=== PATIENT | male | born 1965 | race Caucasian/White ===

== ENCOUNTER 2022-06-23 13:15 | Outpatient (RCR) | payer BC, SELFPAY ==
[2022-06-23 13:12] VITALS: BMI 31.3
[2022-06-23 15:14] VITALS: BMI 31.3
== END 2022-09-06 08:55 | disposition home or self-care (01) ==
LOC: ANHDMC 13:15
PROVIDERS: PCP Family Medicine; Visit Provider Physician Assistant
DX: E11.9 Type 2 diabetes mellitus without complications (principal); Z71.89 Other specified counseling; Z71.3 Dietary counseling and surveillance
CPT/HCPCS: 97802; G0108

== ENCOUNTER 2023-11-07 13:04 | Outpatient (CLI) | payer BC, SELFPAY ==
[2023-11-07 14:07] LABS: Influenza A QL RT-PCR Negative (Negative); Influenza B QL RT-PCR Negative (Negative); RSV RNA, RT-PCR Negative (Negative); SARS-CoV-2 RNA PCR Negative (Negative)
== END 2023-11-07 13:05 | disposition home or self-care (01) ==
LOC: ANHLAB 13:05
PROVIDERS: PCP Family Medicine; Visit Provider Family Medicine
DX: J98.9 Respiratory disorder, unspecified (principal); Z20.822 Contact with and (suspected) exposure to COVID-19
CPT/HCPCS: 87637

== ENCOUNTER 2023-11-14 09:27 | Emergency (ER) | payer BC, SELFPAY ==
--- NOTE | ~2023-11-14 | XR_ITS ---
XR chest 1V portable Ordering provider: Guy Hawkins MD History: 58 years Male with . cough, URI, weakness . Comparison: None. FINDINGS: MEDIASTINUM: The cardiac silhouette is not enlarged. LUNGS: No effusions or pneumothorax. Opacification the lung bases more on the left side suggestive of pneumonia. OTHER: No free air under the diaphragm. Degenerative the spine. IMPRESSION: Bibasilar pneumonia. Reviewed, dictated and finalized at location A. IMPRESSION: Bibasilar pneumonia.
[2023-11-14 10:01] VITALS: BP 166/103; PULSE 94; RESP 16; TEMP 36.6; O2SAT 100
[2023-11-14 11:55] VITALS: O2SAT 100
[2023-11-14 12:15] LABS: Influenza A QL RT-PCR Negative (Negative); Influenza B QL RT-PCR Negative (Negative); RSV RNA, RT-PCR Negative (Negative); SARS-CoV-2 RNA PCR Negative (Negative)
[2023-11-14] MEDS: AZITHROMYCIN 250 MG TABLET 500 MG PO (13:10)
[2023-11-14] MEDS: AMOXICILLIN/CLAVULANATE K 875-125 MG TAB 1 TABLET PO (13:10)
--- NOTE | 2023-11-14 13:28 | ED.GENADULT ---
HPI - General Adult General Chief complaint: Upper Respiratory Infection Stated complaint: been laid up for 3 weeks Time Seen by Provider: 11/14/23 11:38 History of Present Illness HPI narrative: 58-year-old male presents emergency department for evaluation for 3 weeks of cough. Patient was evaluated by his primary care physician and was started on prednisone, patient has not been on any antibiotics. Patient presented the ED for complaint of worsening cough and fatigue. Related Data Allergies Allergy/AdvReac Type Severity Reaction Status Date / Time No Known Allergies Allergy Verified 11/14/23 10:04 Review of Systems Review of Systems: All systems reviewed & are unremarkable except as noted in HPI and below PMFSH Past Medical History Medical History Alcohol use disorder Diabetes Essential hypertension Other hyperlipidemia Prediabetes Screening for malignant neoplasm of prostate Family History Family History Mother Hypertension Other Diabetes mellitus Social History Social History Smoking status: Never smoker Second hand tobacco smoke exposure: No Alcohol intake: current Alcohol use details: drinks 6-12 beers nightly; total of 42-84 weekly Substance use: current Substance use type: does not use and marijuana Other substance usage details: edibles, very infrequently Spiritual care concerns: No Exam Narrative: APPEARANCE: Well appearing, no pain, no distress, well-nourished. HEAD: normocephalic, atraumatic. EYES: PERRLA/EOMI, conjunctivae clear. NOSE: Normal no drainage EARS:TMS clear with good light reflex. THROAT: Pharynx clear, no exudate. NECK: Supple. No adenopathy, no masses. RESPIRATORY: Airway patent, respirations nonlabored. Clear to auscultation bilaterally, no rales, rhonchi, wheezing. CARDIOVASCULAR: Regular rate and rhythm without murmurs rubs or gallops. ABDOMINAL: Soft, nontender, nondistended, normal bowel sounds MUSCULOSKELETAL: Moves all extremities. Strength/ROM intact, No edema, No calf tenderness. NEURO: Alert. Cranial nerves II through XII intact. SKIN: Warm, dry. Normal Color Course Course Emergency Course: Patient was started on antibiotics for pneumonia Vital Signs Vital signs: Vital Signs Temperature 97.9 F 11/14/23 10:01 Pulse Rate 94 11/14/23 10:01 Respiratory Rate 16 11/14/23 10:01 Blood Pressure 166/103 H 11/14/23 10:01 Pulse Oximetry 100 11/14/23 10:01 Oxygen Delivery Room Air 11/14/23 10:01 Temperature 97.9 F 11/14/23 10:01 Pulse Rate 94 11/14/23 10:01 Respiratory Rate 16 11/14/23 10:01 Blood Pressure 166/103 H 11/14/23 10:01 Pulse Oximetry 100 11/14/23 11:55 Oxygen Delivery Room Air 11/14/23 11:55 Medical Decision Making MDM Narrative Medical decision making narrative: 58-year-old male presenting ED for evaluation of persistent cough and congestion. Patient was negative for influenza RSV and COVID. X-ray was concerning for bibasilar pneumonia. Patient's vital signs within normal limits patient has a stable pulse ox on room air. Patient was started on Augmentin and azithromycin the emergency department. Patient will be discharged home with Tessalon Perles and albuterol inhaler in addition to antibiotics. Patient was already prescribed prednisone by his primary care physician he was told he could continue these medications. Patient was updated on reasons to return to the emergency department. All questions concerns were addressed patient was well-appearing at time of discharge. Differential Diagnosis Differential Diagnosis: Pneumonia, pneumothorax, influenza, COVID, RSV Vital Signs Vital Signs: Vital Signs Temperature 97.9 F 11/14/23 10:01 Pulse Rate 94 11/14/23 10:01 Respiratory Rate 16 11/14/23 10:01 Blood P
== END 2023-11-14 13:44 | disposition home or self-care (01) ==
PROVIDERS: Emergency Provider Emergency Medicine; PCP Family Medicine
DX: J18.9 Pneumonia, unspecified organism (principal); E11.9 Type 2 diabetes mellitus without complications; I10 Essential (primary) hypertension; E78.5 Hyperlipidemia, unspecified; Z20.822 Contact with and (suspected) exposure to COVID-19
CPT/HCPCS: 71045; 87637; 99283; A9270

== ENCOUNTER 2025-02-05 23:09 | Emergency (ER) | payer BC, SELFPAY ==
--- NOTE | ~2025-02-05 | CT_ITS ---
CT abdomen pelvis w con Clinical History: rectal bleeding . Comparison: None Technique: Axial images lung bases to symphysis pubis 100 mL Omnipaque 350 Coronal, sagittal reformats CT images acquired with automatic exposure control for dose reduction DLP: 668 mGy-cm Findings: Lung bases: Clear. Visualized heart and pericardium: Unremarkable. Liver: Small hypodensity too small to characterize for a. Gallbladder: Unremarkable. Spleen: Unremarkable. Pancreas: Unremarkable. Adrenal glands: Unremarkable. Kidneys: Right kidney- No hydronephrosis. No renal stones. Tiny probable cyst. Left kidney- No hydronephrosis. No renal stones. Tiny probable cyst Distal esophagus/stomach: Mild distal esophageal wall thickening/esophagitis. Small bowel loops: Normal caliber and wall thickness. Colon: Cecal diverticula, minimal surrounding inflammation. Normal RLQ appendix. Nodes: No enlarged nodes. Peritoneum: No ascites. No free air. Urinary bladder: Unremarkable. Prostate: Unremarkable. Bones: No acute bony abnormality. Soft tissues: Unremarkable. Aorta: No aneurysm or dissection. IVC: Unremarkable. Main portal vein/SMV/splenic vein: Patent. IMPRESSION: 1. Trace cecal diverticulitis. 2. Trace gastroesophagitis. Reviewed, dictated and finalized at location R.
[2025-02-05 23:28] VITALS: BP 145/93; PULSE 106; RESP 14; TEMP 37.1; O2SAT 100
--- NOTE | 2025-02-06 01:10 | ED_ITS ---
HPI - GI Bleed General Chief complaint: GI Bleed Stated complaint: Bloody Stool Time Seen by Provider: 02/06/25 00:40 History of Present Illness HPI Narrative: 59-year-old male with history of hypertension and type 2 diabetes and previous alcohol use disorder. Patient presents to the emergency department today with bloody stools for last few hours. States he had some extra cheesy pizza and some [place] food today which he thinks may have caused it. No abdominal pain but states that he does get some cramping when he gets to go the bathroom. Notes normal stool with dark blood admixed. No mucus or clots. No fever chills. No back pain, chest pain, shortness a breath. No traumatic injury. No history of colitis or diverticulitis to his knowledge but he has never had a colonoscopy and he is overdue. Was otherwise in his normal state of health without any recent travel or medication changes. Related Data Allergies Allergy/AdvReac Type Severity Reaction Status Date / Time No Known Allergies Allergy Verified 02/05/25 23:09 Review of Systems 2 Review of Systems: As reviewed above in HPI [facility] Past Medical History Medical History Diabetes Alcohol use disorder Screening for malignant neoplasm of prostate Prediabetes Other hyperlipidemia Essential hypertension Family History Family History Mother Hypertension Other Diabetes mellitus Social History Social History Smoking status: Never smoker Second hand tobacco smoke exposure: No Alcohol intake: current Alcohol use details: drinks 6-12 beers nightly; total of 42-84 weekly Substance use: current Substance use type: does not use and marijuana Other substance usage details: edibles, very infrequently Spiritual care concerns: No Exam 2 Narrative: GENERAL: [Well-appearing, well-nourished, and in no acute distress.] HEAD: [Normocephalic, atraumatic.] EYES: [PERRLA and EOMI.] ENT: Nares clear, no rhinorrhea or epistaxis. Mucous membranes moist. NECK: Supple. CHEST: [Clear to auscultation. No respiratory distress.] HEART: [Regular rate and rhythm]. No murmur heard. [Normal peripheral pulses.] ABDOMEN: [Soft, nondistended], [nontender], [No rigidity or guarding] EXTREMITIES: Normal range of motion. [No edema.] SKIN: Warm, dry, no rash. NEURO: [No focal deficits]. Alert and oriented [x3.] PSYCH: [Normal mood and affect.] Course Vital Signs Vital signs: Vital Signs Temperature 37.1 C 02/05/25 23:28 Pulse Rate 106 H 02/05/25 23:28 Respiratory Rate 14 02/05/25 23:28 Blood Pressure 145/93 H 02/05/25 23:28 Pulse Oximetry 100 02/05/25 23:28 Oxygen Delivery Room Air 02/05/25 23:28 Temperature 37.1 C 02/05/25 23:28 Pulse Rate 96 02/06/25 04:07 Respiratory Rate 16 02/06/25 04:07 Blood Pressure 124/90 02/06/25 04:07 Pulse Oximetry 99 02/06/25 04:07 Oxygen Delivery Room Air 02/06/25 01:21 MDM - GI Bleed MDM Narrative Medical decision making narrative: 59-year-old male with history of hypertension and type 2 diabetes and previous alcohol use disorder. Patient presents to the emergency department today with bloody stools for last few hours. States he had some extra cheesy pizza and some [place] food today which he thinks may have caused it. No abdominal pain but states that he does get some cramping when he gets to go the bathroom. Notes normal stool with dark blood admixed. No mucus or clots. No fever chills. No back pain, chest pain, shortness a breath. No traumatic injury. No history of colitis or diverticulitis to his knowledge but he has never had a colonoscopy and he is overdue. Was otherwise in his normal state of health without any recent travel or medication changes. Patient is overall well-appearing not any acute distress. Mildly tachycardic but afebrile. Blood pressure slightly hypertensive 145/93 but not significant. Suspect with his painless rectal bleeding he most likely has a bleeding internal hemorrhoid rather than something like colitis or diverticulitis or a mass. Laboratory studies obtained he was given fluids as well as a CT abdomen pelvis with contrast for further delineation. Laboratory studies showed leukocytosis of 11.3. No significant anemia. Hemoglobin 13.5. Platelet count 266. Electrolytes are largely unremarkable. Normal kidney function. Mildly elevated glucose. LFTs normal. CT scan shows gastroenteritis and a prominent diverticulum with surrounding inflammation concerning for mild acute diverticulitis and mild colitis without obstruction or perforation. Symptoms consistent with patient's story with bloody diarrhea without significant pain. Will be started on ciprofloxacin and Flagyl and given prescriptions for 7 days. Given return precautions and warning signs to watch out for as well as close outpatient follow-up with his primary care provider. Patient comfortable with the plan and safe for discharge. Medical Records Attestation: I reviewed the patient's medical records. Lab Data Attestation: I reviewed the patient's lab results. 02/06/25 01:27 02/06/25 01:27 Labs: Lab Results 02/06/25 Range/Units 01:27 WBC 11.3 H (4.5-10.0) K/mm3 RBC 4.22 L (4.6-6.20) M/mm3 Hgb 13.5 L (14.0-18.0) g/dL Hct 38.0 L (42.0-52.0) % MCV 90.0 (80-100) fl MCH 32.0 (26-34) pg MCHC 35.5 (32-36) g/dl RDW 12.2 (11.5-14.5) % Plt Count 266 (150-375) k/mm3 MPV 10.4 (7.4-10.4) fl Immature Gran % (Auto) 0.4 (0-0.5) % Neut % (Auto) 75.9 H (45.5-73.1) % Lymph % (Auto) 14.5 L (18.3-44.2) % [place] % (Auto) 6.5 (2.6-8.5) % Eos % (Auto) 2.1 (0-4.4) % Baso % (Auto) 0.6 (0.2-1.2) % Lymph # (Auto) 1.64 (0.9-3.2) K/mm3 [place] # (Auto) 0.7 H (0.1-0.6) K/mm3 Eos # (Auto) 0.2 (0-0.3) K/mm3 Baso # (Auto) 0.1 (0.0-0.1) K/mm3 Abs Immat Gran (auto) 0.05 H (0.00-0.031) K/mm3 Absolute Neuts (auto) 8.6 H (1.3-6.7) K/mm3 Absolute Nucleated RBC 0.000 (0.0-0.012) K/mm3 Nucleated RBC % 0.0 (0.0-0.2) % PT 13.5 (11.1-14.7) Seconds INR 1.0 APTT 26.6 (22.3-36.8) Seconds Sodium 137 (137-145) mmol/L Potassium 4.4 (3.4-5.0) mmol/L Chloride 104 (98-107) mmol/L Carbon Dioxide 24 (22-30) mmol/L Anion Gap 9 (4-12) mmol/L BUN 21 H (9-20) mg/dL Creatinine 0.89 (0.7-1.3) mg/dL Estim Creat Clear Calc Not Reportable Estimated GFR > 60 (59 - ) Glucose 205 H (65-110) mg/dL Calcium 9.1 (8.4-10.2) mg/dL Total Bilirubin 0.9 (0.2-1.3) mg/dL AST 24 (17-59) U/L ALT 26 (6-50) U/L Alkaline Phosphatase 73 (38-126) U/L Total Protein 6.2 L (6.3-8.2) g/dL Albumin 3.8 (3.5-5.1) g/dL Blood Type A Positive Antibody Screen Negative Imaging Data Attestation: I personally reviewed and interpreted this imaging study as follows: My impression: Colitis, mild acute diverticulitis Discharge Plan Discharge Clinical Impression: Colitis, Gastroenteritis, Diverticulitis Patient Disposition: Home Condition: Stable Instructions: Antibiotic Form, Diverticulitis (DC), Diet for Stomach Ulcers and Gastritis (ED), Colitis (ED) Additional Instructions: You have inflammation and potentially a minor infection in your abdomen around the colon and diverticula which seems to be mild diverticulitis/colitis/gastroenteritis. Will treat this with antibiotics based on the bloody diarrhea. If you have worsening pain, inability to tolerate oral intake. Intractable fevers, profound nausea, vomiting or any other issues please return to the emergency department otherwise follow-up with regular doctor after completing the antibiotic course. Patient Language: Georgian Prescriptions: New metronidazole 500 mg tablet 500 mg PO Q12H 7 Days Qty: 14 0RF ciprofloxacin HCl [Cipro] 500 mg tablet 500 mg PO Q12H 7 Days Qty: 14 0RF No Action albuterol sulfate 90 mcg/actuation HFA aerosol inhaler 1 inh inhalation QID PRN (Reason: shortness of breath or wheezing) Qty: 6.7 0RF simvastatin 20 mg tablet 20 mg PO DAILY Qty: 90 3RF lisinopril 20 mg tablet 20 mg PO DAILY Qty: 90 3RF amlodipine [Norvasc] 5 mg tablet 5 mg PO DAILY Qty: 90 3RF Follow-up/Referrals: Lillie Martínez MD [Primary Care Provider, Family Practice] Time of Disposition: 03:49
[2025-02-06 01:21] VITALS: BP 114/83; PULSE 99; RESP 16; O2SAT 100
[2025-02-06] MEDS: LACTATED RINGERS 1,000 ML 999 ML IV CONT (01:28)
[2025-02-06 01:33] LABS: Hematocrit 38.0 % (42.0-52.0); Hemoglobin 13.5 g/dL (14.0-18.0); Immature Granulocyte Percent A 0.4 % (0-0.5); Lymphocytes Absolute Auto 1.64 K/mm3 (0.9-3.2); Mean Corpuscular HGB Conc 35.5 g/dl (32-36); Mean Corpuscular Hemoglobin 32.0 pg (26-34); Mean Corpuscular Volume 90.0 fl (80-100); Nucleated Red Blood Cells Absolute Auto 0.000 K/mm3 (0.0-0.012); Nucleated Red Blood Cells Perc 0.0 % (0.0-0.2); Platelet Count Result 266 k/mm3 (150-375); Red Blood Count 4.22 M/mm3 (4.6-6.20); White Blood Count 11.3 K/mm3 (4.5-10.0)
[2025-02-06 01:49] LABS: INR 1.0; Partial Thromboplastin Time 26.6 Seconds (22.3-36.8); Prothrombin Time 13.5 Seconds (11.1-14.7)
[2025-02-06 02:00] LABS: Alanine Aminotransferase 26 U/L (6-50); Albumin Level 3.8 g/dL (3.5-5.1); Alkaline Phosphatase 73 U/L (38-126); Anion Gap 9 mmol/L (4-12); Aspartate Amino Transferase 24 U/L (17-59); Bilirubin,Total 0.9 mg/dL (0.2-1.3); Blood Urea Nitrogen 21 mg/dL (9-20); Calcium 9.1 mg/dL (8.4-10.2); Carbon Dioxide 24 mmol/L (22-30); Chloride 104 mmol/L (98-107); Estimated Glomerular Filt Rate > 60; Glucose 205 mg/dL (65-110); Potassium 4.4 mmol/L (3.4-5.0); Sodium 137 mmol/L (137-145); Total Protein 6.2 g/dL (6.3-8.2)
[2025-02-06 02:21] VITALS: BP 130/75; PULSE 88; RESP 20; O2SAT 96
[2025-02-06 03:44] VITALS: BP 134/84; PULSE 90; RESP 18; O2SAT 99
[2025-02-06] MEDS: CIPROFLOXACIN 500 MG TAB PO (04:04)
[2025-02-06 04:07] VITALS: BP 124/90; PULSE 96; RESP 16; O2SAT 99
== END 2025-02-06 04:07 | disposition home or self-care (01) ==
PROVIDERS: Emergency Provider Student in an Organized Health Care Education/Training Program; PCP Family Medicine
DX: K57.32 Diverticulitis of large intestine without perforation or abscess without bleeding (principal); K52.9 Noninfective gastroenteritis and colitis, unspecified; I10 Essential (primary) hypertension; E11.9 Type 2 diabetes mellitus without complications; E78.49 Other hyperlipidemia; Z79.899 Other long term (current) drug therapy
CPT/HCPCS: 36415; 74177; 80053; 85025; 85610; 85730; 86850; 86900; 86901; 96360; 99284; A9270; J7120; Q9967